=== PATIENT | female | born 1940 ===

== ENCOUNTER → 2023-07-30 04:02 | Outpatient (CLI) | payer MEDICARE, SELFPAY ==
--- NOTE | 2023-07-30 | DI.MRI_ITS ---
Exam(s) MR LUMBAR SPINE WO EXAM: MR LUMBAR SPINE WO CLINICAL HISTORY: LOW BACK PAIN, RT SCIATICA,SPONDYLOSIS,M47.9. TECHNIQUE: Multiplanar multisequence MRI of the Lumbar spine was performed. COMPARISON: CR XR LS SPINE 2-3 VIEWS from 07/11/2023 FINDINGS: Conus medullaris is at lower L1 level. There is no evidence of conus mass nor subjacent clumping of intrathecal nerve roots to suggest arachnoiditis. The distal thecal sac appears unremarkable.There i s no evidence of Tarlov intrasacral cysts nor other significant findings within the sacral canal Bones:There are no fractures nor ominous osseous lesions in the lumbar vertebral bodies and visualize d sacrum. There is mild degenerative scoliosis convex left. With respect to the individual levels... T12-L1: Unremarkable L1-2: There is advanced disc space narrowing. There are Modic type 2 sub endplate fatty marrow kirby es on both sides of the disc space. There is annular bulging and posterior osteophytic ridging, most prominent on the right side where th ere is a right paracentral disc protrusion extending beyond the posterior osteophytic ridging and ind enting the right-side of the thecal sac. Mild central canal stenosis at this level. There is signif icant narrowing of the exiting right neural foramen due to the above findings and significant disc he ight loss. There is only mild degenerative change in the facet joints at this level. There is only mild foraminal stenosis on the opposite-left side at this level. L2-3: This level exhibits moderate-advanced disc height loss, more so on the right than the left side . There is broad annular bulging which flattens the anterior thecal sac resulting in moderate no can al stenosis. There is significant moderate-severe right-sided foraminal stenosis at this level due t o the annular bulging and advanced disc height loss on the right side of the disc space and some face t hypertrophy degenerative changes. On the opposite-left side there is only minimal narrowing of the exiting left neural foramen.There are moderate-advanced degenerative facet joint arthropathy changes bilaterally at this level.. L3-4: This level exhibits mild disc space narrowing. There is a mild degenerative anterolisthesis L3 upon L4 related to advanced facet degenerative changes. This together with short AP dimensions the pedicles and symmetrical annular bulging results in moderate-severe central spinal canal stenosis at this level. There is mild-moderate narrowing of the exiting neural foramina bilaterally at this leve l. Advanced degenerative changes in the facet joints noted. L4-5: This level exhibits only mild disc space narrowing. No significant disc herniation. Central c anal dimensions are lower normal. There is no foraminal stenosis on either side despite advanced promise ateral facet arthropathy. The preserved disc height is what is preventing the foraminal stenosis at this level. L5-S1: This level exhibits preserved disc height although there are lateral left osteophytes evident at this level. There is no disc herniation at this level nor central canal stenosis. There is facet arthropathy left more than right but there is no foraminal stenosis on either side at this level due to the preserved disc height. Soft tissues: paraspinal soft tissues appear unremarkable. IMPRESSION: There are multilevel findings as described individually above, most prominent in the upper-mid lumbar spine and without significant central nor foraminal stenosis evident at L4-5 and L5-S1 levels. DATA REPOSITORY:
== END ==
PROVIDERS: PCP Family Medicine; Visit Provider Family Medicine
DX: M47.9 Spondylosis, unspecified (principal)
CPT/HCPCS: 72148